=== PATIENT | male | born 2000 | race Hispanic/Latino ===

== ENCOUNTER 2021-09-22 18:29 | Emergency (ER) | payer OTHER ==
[2021-09-22 19:24] VITALS: BP 120/79
--- NOTE | 2021-09-22 19:39 | XRay Report ---
Right hand 3 views INDICATION: Hand pain FINDINGS: MCP joints and IP joints appear normal. Carpal bone alignment appears normal. No acute frac ture is seen. Left shoulder 3 views INDICATION: Shoulder pain FINDINGS: No acute fracture dislocation is seen. No displaced fracture in the clavicle. Signer Name: Edy Andre MD Signed: 09/22/2021 7:35 PM Workstation Name: [id number]
--- NOTE | 2021-09-22 19:39 | XRay Report ---
Right hand 3 views INDICATION: Hand pain FINDINGS: MCP joints and IP joints appear normal. Carpal bone alignment appears normal. No acute frac ture is seen. Left shoulder 3 views INDICATION: Shoulder pain FINDINGS: No acute fracture dislocation is seen. No displaced fracture in the clavicle. Signer Name: Edy Andre MD Signed: 09/22/2021 7:35 PM Workstation Name: [id number]
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
== END 2021-09-22 20:39 | disposition home or self-care (01) ==
LOC: ED 18:29
DX: M25.512 Pain in left shoulder (principal); M79.641 Pain in right hand; M54.2 Cervicalgia
CPT/HCPCS: 99283